=== PATIENT | male | born 2000 | race Caucasian/White ===

== ENCOUNTER 2023-04-22 18:52 | Emergency (ER) | payer BC, SELFPAY ==
--- NOTE | ~2023-04-22 | XR_ITS ---
EXAMINATION: XR chest 2V DATE: 04/22/2023 19:26 INDICATION: Chest pain TECHNIQUE: PA and lateral views of the chest are obtained. COMPARISON: None available FINDINGS: The lungs are free of acute opacities. No pleural effusion or pneumothorax. The cardiomedia stinal silhouette is normal. The visualized bones and soft tissues are unremarkable. IMPRESSION: 1. No acute cardiopulmonary abnormality. Reviewed, dictated and finalized at location F.
[2023-04-22 18:57] VITALS: BP 181/93; PULSE 129; RESP 17; TEMP 36.8; O2SAT 100
--- NOTE | 2023-04-22 19:01 | ECG_ITS ---
Measurements Intervals [place] Rate: 114 P: 54 FL: 128 QRS: 36 QRSD: 87 T: 16 QT: 291 QTc: 402 Interpretive Statements SINUS TACHYCARDIA ABNORMAL RHYTHM ECG NO PREVIOUS ECG AVAILABLE FOR COMPARISON Electronically Signed On 04-23-2023 8:51:47 CDT by Chloé Leyva M.D.
[2023-04-22 19:10] VITALS: PULSE 118
[2023-04-22 19:11] VITALS: O2SAT 98
[2023-04-22 19:27] LABS: Basophils Absolute Auto 0.1 K/mm3 (0.0-0.1); Basophils Percent Auto 0.3 % (0.2-1.2); Eosinophils Percent Auto 0.1 % (0-4.4); Hematocrit 48.3 % (42.0-52.0); Hemoglobin 16.9 g/dL (14.0-18.0); Immature Granulocyte Absolute 0.05 K/mm3 (0.00-0.031); Immature Granulocyte Percent A 0.3 % (0-0.5); Lymphocytes Absolute Auto 2.44 K/mm3 (0.9-3.2); Lymphocytes Percent Auto 16.5 % (18.3-44.2); Mean Corpuscular Hemoglobin 31.2 pg (26-34); Mean Corpuscular Volume 89.3 fl (80-100); Mean Platelet Volume 11.3 fl (7.4-10.4); Monocytes Absolute Auto 0.9 K/mm3 (0.1-0.6); Monocytes Percent Auto 6.2 % (2.6-8.5); Neutrophils Absolute Auto 11.3 K/mm3 (1.3-6.7); Neutrophils Percent Auto 76.6 % (45.5-73.1); Platelet Count Result 262 k/mm3 (150-375); Red Blood Count 5.41 M/mm3 (4.6-6.20); Red Cell Distribution Width 12.1 % (11.5-14.5); White Blood Count 14.8 K/mm3 (4.5-10.0)
[2023-04-22 19:35] LABS: Partial Thromboplastin Time 25.5 SECONDS (22.3-36.8); Prothrombin Time 13.7 Seconds (11.1-14.7)
[2023-04-22 19:36] LABS: Potassium 3.7 mmol/L (3.4-5.0)
[2023-04-22] MEDS: LACTATED RINGERS 1,000 ML 999 ML IV CONT ×2 (19:36→19:40)
[2023-04-22 19:43] LABS: Alanine Aminotransferase 51 U/L (6-50); Albumin Level 4.9 g/dL (3.5-5.1); Alkaline Phosphatase 69 U/L (38-126); Anion Gap 9 mmol/L (8-16); Aspartate Amino Transferase 45 U/L (17-59); Bilirubin,Total 0.6 mg/dL (0.2-1.3); Blood Urea Nitrogen 17 mg/dL (9-20); Calcium 10.1 mg/dL (8.4-10.2); Carbon Dioxide 25 mmol/L (22-30); Chloride 100 mmol/L (98-107); Estimated CRCL calculation 112 ml/min; Estimated Glomerular Filt Rate > 60; Glucose 98 mg/dL (65-110); Lipase 71 U/L (23-300); Sodium 134 mmol/L (137-145)
--- NOTE | 2023-04-22 19:46 | ED.CHESTPAIN ---
HPI - Chest Pain General Chief Complaint: Chest Pain Stated Complaint: Chest Pain Time Seen by Provider: 04/22/23 19:03 History of Present Illness HPI narrative: 22-year-old male with no past medical history was outside working for a long period of time today when he started feeling some chest tightness, worse when he takes deep breaths, he does admit that he has not been drinking much water. Has not had symptoms like this before. Since coming into the air-conditioned hospital he is feeling much better. Chest pain resolved Related Data Home Medications Medication Instructions Recorded Confirmed No Home Medications 04/22/23 04/22/23 Allergies Allergy/AdvReac Type Severity Reaction Status Date / Time No Known Drug Allergies Allergy Unknown Verified 04/22/23 19:00 Review of Systems Review of Systems: CONST: No fever. HEENT: No sore throat C/V: chest pain RESP: No cough GI: No nausea or vomiting : No dysuria. M/S: No joint pain. SKIN: No rash. NEURO: [No headache or focal numbness or weakness] PSYCH: [No depression] Exam Narrative: EXAMINATION OF ORGAN SYSTEMS/BODY AREAS: Constitutional: Vital signs per nursing GENERAL:[No acute distress, non-toxic appearing.] Resting comfortably. HEAD: Normal with no signs of head trauma. EYES: EOMI, conjunctiva normal ENT: Hearing grossly intact LUNGS: Nonlabored breathing. HEART: Tachycardic, regular rhythm ABD: [Soft], [nontender to palpation] EXT: Normal range of motion SKIN: [No rashes or lesions.] NEURO: [Alert and oriented x 3. No gross focal sensory or strength deficits.] PSYCH: Normal affect Course Vital Signs Vital signs: Vital Signs Temperature 98.2 F 04/22/23 18:57 Pulse Rate 129 H 04/22/23 18:57 Respiratory Rate 17 04/22/23 18:57 Blood Pressure 181/93 H 04/22/23 18:57 Pulse Oximetry 100 04/22/23 18:57 Oxygen Delivery Room Air 04/22/23 18:57 Temperature 98.2 F 04/22/23 18:57 Pulse Rate 118 H 04/22/23 19:10 Respiratory Rate 17 04/22/23 18:57 Blood Pressure 181/93 H 04/22/23 18:57 Pulse Oximetry 98 04/22/23 19:11 Oxygen Delivery Room Air 04/22/23 19:11 MDM - Chest Pain MDM Narrative Medical decision making narrative: ED COURSE AND MEDICAL DECISION MAKIN-year-old male presenting with chest pain. EKG done in triage negative for acute ischemic changes. Cardiac workup is initiated. EKG: Performed in triage and interpreted by me. Normal sinus rhythm. Rate 114. Normal axis. AK normal. QRS duration normal. QTc normal. No pathologic Q waves. No ST segment elevation or depression to suggest acute ischemia. No RV strain pattern. HEART score is 0 with no acute ischemic changes on EKG and negative troponin making ACS unlikely. Wells low risk without DVT symptoms or difficulty breathing making PE unlikely. Presentation not consistent with dissection or aneurysm without radiation of pain or pulse deficits. CXR negative for mediastinal widening. No abdominal pain or signs of sepsis that would be concerning for esophageal perforation or mediastinitis. No cardiomegaly or JVD to suggest pericardial effusion/tamponade. I suspect most likely heat exhaustion based on history and exam. Labs only notable for mildly elevated WBC, CK not dangerously high. IVF started. On re-eval pt's HR improved to 106; he is now completely asymptomatic and wants to go home. He ambulated with normal steady gait to the restroom. On repeat evaluation just prior to discharge, the patient is no acute distress. I had a long discussion with the patient and with shared decision making, [he] is comfortable with outpatient management. [He] was given clear return instructions by myself in person as well as on discharge paperwork. Lab Data 04/22/23 19:18 04/22/23 19:18 Labs: Lab Results 04/22/23 04/22/23 Range/Units 19:17 19:18 WBC 14.8 H (4.5-10.0) K/mm3 RBC 5.41 (4.6-6.20) M/mm3 Hgb 16.9
[2023-04-22 19:47] LABS: Troponin I < 0.012 ng/mL (0.000-0.034)
[2023-04-22 20:00] LABS: Creatine Kinase 334 U/L (55-170)
[2023-04-22 20:51] VITALS: BP 150/78; PULSE 104; RESP 13; O2SAT 99
== END 2023-04-22 20:53 | disposition home or self-care (01) ==
PROVIDERS: Emergency Medicine; Emergency Provider Emergency Medicine
DX: R07.89 Other chest pain (principal); E86.0 Dehydration; R00.0 Tachycardia, unspecified
CPT/HCPCS: 36415; 71046; 80053; 82550; 83690; 84484; 85025; 85610; 85730; 93005; 96360; 99284; J7120